=== PATIENT | male | born 1965 | race Asian ===

== ENCOUNTER → 2018-02-13 09:02 | Outpatient (CLI) | payer BC, SELFPAY ==
--- NOTE | 2018-02-13 09:09 | RAD_ITS ---
STUDY: X-RAY CHEST REASON FOR EXAM: Male, 53 years old. Chronic obstructive pulmonary disease. TECHNIQUE: 2 views COMPARISON: Prior chest radiograph of January 18, 2016. FINDINGS: Increased hyperexpansion since the prior exam. Negative for new consolidation, focal atelectasis or substantial pleural effusion. Normal size heart. Normal mediastinum and veronica. Normal visualized pulmonary arteries. There is atherosclerotic calcification of the aortic arch with tortuosity. Normal visualized thoracic spine. Normal visualized ribs, clavicles, and shoulders. There is no demonstrated abnormality of the visualized soft tissue structures of the upper abdomen. RAD/Chest PA and Lateral IMPRESSION: Increased hyperexpansion consistent with acute or chronic obstructive airway disease. Negative for new consolidation, focal atelectasis or substantial pleural effusion. Negative for mass density. Electronically Signed: Sofya Arshad MD at 17:05 EDT , Service support ,
== END ==
PROVIDERS: Family Provider Internal Medicine; PCP Internal Medicine; Visit Provider Internal Medicine
DX: J44.9 Chronic obstructive pulmonary disease, unspecified (principal)
CPT/HCPCS: 71046